=== PATIENT | male | born 1985 | race African-American/Black ===

== ENCOUNTER 2019-06-12 16:23 | Emergency (ER) | payer MEDICAID ==
[~2019-06-12] VITALS: Ht 185.4 cm; Wt 104.3 kg
[2019-06-12 17:25] VITALS: BP 135/86
[2019-06-12] MEDS ORDERED: methylPREDNISolone SOD SUCC 125 MG/2 ML VL IM ONE (17:45)
[2019-06-12] MEDS ORDERED: cefTRIAXone SOD 1,000 MG VL IM ONE (17:45)
== END 2019-06-12 18:06 | disposition home or self-care (01) ==
LOC: ER 16:23
DX: J03.90 Acute tonsillitis, unspecified (principal); F41.9 Anxiety disorder, unspecified; F17.210 Nicotine dependence, cigarettes, uncomplicated
CPT/HCPCS: 96372; 99283; J0696; J2930